=== PATIENT | male | born 1965 | race Two or more races ===

== ENCOUNTER 2018-06-19 16:15 | Emergency (ER) | payer OTHER ==
[~2018-06-19] VITALS: Ht 162.6 cm; Wt 72.0 kg
[2018-06-19] MEDS ORDERED: SODIUM CHLORIDE 0.9% 1,000 ML IV ONE (18:56)
[2018-06-19] MEDS ORDERED: ONDANSETRON HCL 4MG/2ML VIAL IV STA (18:56)
[2018-06-19 21:20] LABS: BASOPHILS % 0.7 % (0.0-2.0); EOSINOPHILS % 1.6 % (0.0-5.0); HEMOGLOBIN. 14.6 g/dL (14.0-18.0); LYMPHOCYTES % 34.6 % (20.0-50.0); MEAN CORPUSCULAR HEMOGLOBIN 33.8 pg (28.0-32.0); MEAN PLATELET VOLUME 10.5 fl (7.4-10.4); MONOCYTES % 10.5 % (2.0-8.0); NEUTROPHILS % 52.6 % (40.0-76.0); PLATELET 86 x1000/uL (130-400); RED BLOOD CELL COUNT 4.33 mill/uL (4.7-6.1); RED CELL DISTRIBUTION WIDTH 12.8 % (11.6-14.6)
[2018-06-19 21:25] LABS: CHLORIDE 104 mEq/L (98-107)
[2018-06-19] MEDS ORDERED: CLONIDINE 0.1MG TABLET PO ONE (22:15)
[2018-06-20 00:04] LABS: CLARITY URINE CLEAR (CLEAR); COLOR URINE YELLOW (YELLOW); KETONES URINE NEGATIVE (NEGATIVE); LEUKOCYTE ESTERASE URINE NEGATIVE (NEGATIVE); NITRITE URINE NEGATIVE (NEGATIVE); OCCULT BLOOD URINE 1+ (NEGATIVE); PH URINE 7.5 (4.5-8.0); PROTEIN URINE TRACE (NEGATIVE); UROBILINOGEN URINE 0.2 E.U./dL (0.2-1.0)
[2018-06-20 01:45] VITALS: BP 163/95
== END 2018-06-20 01:46 | disposition home or self-care (01) ==
LOC: ER 16:15
DX: I10 Essential (primary) hypertension (principal); I85.00 Esophageal varices without bleeding; K74.69 Other cirrhosis of liver; R94.31 Abnormal electrocardiogram [ECG] [EKG]; K57.30 Diverticulosis of large intestine without perforation or abscess without bleeding
CPT/HCPCS: 36415; 71045; 74176; 80053; 81003; 83690; 84484; 85025; 93005; 96361; 96374; 99285; J2405; J7030; Z7610

== ENCOUNTER → 2020-05-03 | Outpatient (CLI) | payer MEDICAID ==
[~2020-05-03] MED LIST: DOXA4TAB3 PO; FURO40TA5 MT; LISI-648 PO; MIDAZOLAM HCL 5 MG/5 ML VIAL ONE; PROP20TA7 MT; PROPOFOL 200MG/20ML VIAL IV ONE; SPIR25TA6 PO; SUCCINYLCHOLINE CHLORIDE 200MG/10ML IV ONE
== END | disposition home or self-care (01) ==
LOC: LAB 08:54
PROVIDERS: ATTEND Internal Medicine Gastroenterology
DX: Z01.818 Encounter for other preprocedural examination (principal); Z11.59 Encounter for screening for other viral diseases
CPT/HCPCS: J0330; U0003-CS

== ENCOUNTER → 2020-05-05 | Day surgery (SDC) | payer MEDICAID ==
[~2020-05-05] VITALS: Ht 168.9 cm; Wt 76.2 kg
[~2020-05-05] MED LIST changes: -MIDAZOLAM HCL 5 MG/5 ML VIAL ONE; -PROPOFOL 200MG/20ML VIAL IV ONE; +SODIUM CHLORIDE 0.9% 1,000 ML IV SCH; -SUCCINYLCHOLINE CHLORIDE 200MG/10ML IV ONE
== END | disposition home or self-care (01) ==
LOC: OR 08:09
PROVIDERS: ATTEND Internal Medicine Gastroenterology
DX: I85.00 Esophageal varices without bleeding (principal); K70.31 Alcoholic cirrhosis of liver with ascites; B96.81 Helicobacter pylori [H. pylori] as the cause of diseases classified elsewhere; K29.50 Unspecified chronic gastritis without bleeding; K31.89 Other diseases of stomach and duodenum; E11.9 Type 2 diabetes mellitus without complications; I10 Essential (primary) hypertension; F10.11 Alcohol abuse, in remission; Z79.899 Other long term (current) drug therapy; Z98.890 Other specified postprocedural states
CPT/HCPCS: 43239; 43244; 82962; 88305; 88312; 88313; 93005; J2250; J2704

== ENCOUNTER 2020-12-01 10:49 | Inpatient (IN) | payer MEDICAID ==
[~2020-12-01] VITALS: Ht 175.3 cm; Wt 88.5 kg
[~2020-12-01 10:49] MED LIST changes: -SODIUM CHLORIDE 0.9% 1,000 ML IV SCH
[2020-12-01 11:31] LABS: BASOPHILS % 0.1 % (0.0-2.0); HEMATOCRIT. 32.6 % (42.0-52.0); HEMOGLOBIN. 10.8 g/dL (14.0-18.0); LYMPHOCYTES % 7.2 % (20.0-50.0); MEAN CORPUSCULAR HEMOGLOBIN 30.4 pg (28.0-32.0); MEAN PLATELET VOLUME 9.2 fl (7.4-10.4); MONOCYTES % 9.2 % (2.0-8.0); NEUTROPHILS % 83.5 % (40.0-76.0); PLATELET 146 x1000/uL (130-400); RED BLOOD CELL COUNT 3.55 mill/uL (4.7-6.1); RED CELL DISTRIBUTION WIDTH 14.2 % (11.6-14.6)
[2020-12-01 11:39] LABS: CHLORIDE 113 mEq/L (98-107)
[2020-12-01 11:41] LABS: INR 1.2; PROTHROMBIN TIME 12.2 sec (9.6-11.0)
[2020-12-01 12:57] LABS: BG BASE EXCESS -5.3 mmol/L (-2.0-2.0); BG DEOXYHEMOGLOBIN 17.6 % (0.0-5.0); BG FRACTION INSPIRED OXYGEN 99.9; BG HCO3 ACT 16.9 mmol/L (22.0-26.0); BG METHEMOGLOBIN 0.1 % (0.0-1.5); BG OXYGEN SATURATION 82.4 % (92.0-98.5); BG OXYHEMOGLOBIN 82.3 % (94.0-97.0); BG PCO2 24.2 mmHg (35.0-45.0); BG PH 7.462 (7.350-7.450); BG PO2 48.5 mmHg (75.0-100.0); BG SAMPLE SITE RIGHT BRACHIAL; BG TOTAL HEMOGLOBIN 11.7 g/dL (12.0-18.0); BG VENT MODE MASK - NRB
[2020-12-01] MEDS ORDERED: NOREPINEPHRINE 8 MG in DEXT 5% WATER 242 ML IV PRN ×2 (14:15→16:30)
[2020-12-01] MEDS ORDERED: MIDAZOLAM HCL 100 MG in DEXT 5% WATER 80 ML IV ONE ×4 (14:15)
[2020-12-01] MEDS ORDERED: FENTANYL CITRATE/PF 2,500 MCG in SODIUM CHLORIDE 0.9% 200 ML IV PRN (14:15)
[2020-12-01] MEDS ORDERED: ETOMIDATE 2MG/ML 10ML VIAL IV ONE (14:15)
[2020-12-01] MEDS ORDERED: FENTANYL CITRATE/PF 500 MCG in SODIUM CHLORIDE 0.9% 40 ML IV PRN (14:15)
[2020-12-01] MEDS ORDERED: SODIUM CHLORIDE 0.9% 1,000 ML IV ONE (14:15)
[2020-12-01] MEDS ORDERED: SUCCINYLCHOLINE CHLORIDE 200MG/10ML IV ONE (14:15)
[2020-12-01] MEDS ORDERED: DEXAMETHASONE 4MG/ML 1ML VIAL IV ONE (15:30)
[2020-12-01] MEDS ORDERED: PIPERACILLIN/TAZ 3.375G PREMIX 50 ML IV ONE (15:30)
[2020-12-01] MEDS ORDERED: VANCOMYCIN 1 G PREMIX 200 ML IV ONE (15:30)
[2020-12-01] MEDS ORDERED: ONDANSETRON HCL 4MG/2ML INJ IV PRN (17:30)
[2020-12-01] MEDS ORDERED: PIPERACILLIN/TAZOBACTAM 3.375 G in DEXT 5% WATER 100 ML IV SCH (17:30)
[2020-12-01] MEDS: SODIUM CHLORIDE 0.45% 1,000 ML IV SCH (17:45)
[2020-12-01 19:00] LABS: HEPATITIS B SURFACE ANTIGEN NEGATIVE
[2020-12-01 19:30] LABS: HEPATITIS A AB IGM NEGATIVE (NEGATIVE)
[2020-12-01 21:22] LABS: BG BASE EXCESS -7.8 mmol/L (-2.0-2.0); BG CARBOXYHEMOGLOBIN 0.3 % (0.5-1.5); BG DEOXYHEMOGLOBIN 7.1 % (0.0-5.0); BG FRACTION INSPIRED OXYGEN 100; BG HCO3 ACT 16.4 mmol/L (22.0-26.0); BG METHEMOGLOBIN 0.2 % (0.0-1.5); BG OXYGEN SATURATION 92.9 % (92.0-98.5); BG OXYHEMOGLOBIN 92.4 % (94.0-97.0); BG PCO2 29.4 mmHg (35.0-45.0); BG PH 7.364 (7.350-7.450); BG PO2 73.7 mmHg (75.0-100.0); BG SAMPLE SITE RIGHT RADIAL; BG TOTAL HEMOGLOBIN 11.1 g/dL (12.0-18.0); BG VENT MODE VENT - AC
[2020-12-01] MEDS: PIPERACILLIN/TAZOBACTAM 2.25 G in DEXTROSE 5% WATER 50 ML IV SCH (22:00)
[2020-12-01] MEDS: ENOXAPARIN 30MG/0.3ML SYR SUBCUT SCH (22:33)
[2020-12-02 04:31] LABS: HEMOGLOBIN. 10.3 g/dL (14.0-18.0); MEAN CORPUSCULAR VOLUME 93.4 fL (80.0-94.0); MEAN PLATELET VOLUME 8.9 fl (7.4-10.4); PLATELET 139 x1000/uL (130-400); RED BLOOD CELL COUNT 3.32 mill/uL (4.7-6.1); RED CELL DISTRIBUTION WIDTH 14.7 % (11.6-14.6)
[2020-12-02] MEDS: PIPERACILLIN/TAZOBACTAM 2.25 G in DEXTROSE 5% WATER 50 ML IV SCH ×4 (05:00→22:00)
[2020-12-02] MEDS ORDERED: MIDAZOLAM HCL 100 MG in DEXT 5% WATER 80 ML IV ONE (07:45)
[2020-12-02] MEDS ORDERED: DEXAMETHASONE 6MG TABLET PO SCH (09:00)
[2020-12-02] MEDS: DEXAMETHASONE 10 MG/ML VIAL IV SCH (09:45)
[2020-12-02] MEDS: PANTOPRAZOLE SODIUM 40 MG/VIAL IV SCH (09:45)
[2020-12-02 10:11] LABS: BG BASE EXCESS 1.7 mmol/L (-2.0-2.0); BG CARBOXYHEMOGLOBIN 0.6 % (0.5-1.5); BG DEOXYHEMOGLOBIN 8.9 % (0.0-5.0); BG FRACTION INSPIRED OXYGEN 100; BG HCO3 ACT 27.2 mmol/L (22.0-26.0); BG METHEMOGLOBIN 0.2 % (0.0-1.5); BG OXYHEMOGLOBIN 90.3 % (94.0-97.0); BG PH 7.389 (7.350-7.450); BG PO2 61.6 mmHg (75.0-100.0); BG SAMPLE SITE LEFT RADIAL; BG TOTAL HEMOGLOBIN 11.8 g/dL (12.0-18.0); BG VENT MODE VENT - AC
[2020-12-02] MEDS: SODIUM CHLORIDE 0.45% 1,000 ML IV SCH (13:48)
[2020-12-02 14:33] LABS: PLATELET ESTIMATE NORMAL
[2020-12-02] MEDS: ENOXAPARIN 30MG/0.3ML SYR SUBCUT SCH (17:24)
[2020-12-02] MEDS ORDERED: DEXTROSE 50% WATER 50ML SYRINGE IV PRN (22:30)
[2020-12-02] MEDS ORDERED: INSULIN GLARGINE UD 100 UNITS/ML SYR SUBCUT SCH (23:30)
[2020-12-03] MEDS: PIPERACILLIN/TAZOBACTAM 2.25 G in DEXTROSE 5% WATER 50 ML IV SCH ×4 (03:30→21:32)
[2020-12-03 05:25] LABS: HEMATOCRIT. 32.3 % (42.0-52.0); HEMOGLOBIN. 10.7 g/dL (14.0-18.0); MEAN CORPUSCULAR HEMOGLOBIN 30.4 pg (28.0-32.0); MEAN CORPUSCULAR VOLUME 92.1 fL (80.0-94.0); MEAN PLATELET VOLUME 8.4 fl (7.4-10.4); PLATELET 172 x1000/uL (130-400); RED BLOOD CELL COUNT 3.51 mill/uL (4.7-6.1); RED CELL DISTRIBUTION WIDTH 14.3 % (11.6-14.6)
[2020-12-03] MEDS: BLOOD SUGAR DIAGNOSTIC STRIP TEST SCH ×4 (05:49→21:31)
[2020-12-03] MEDS: INSULIN LISPRO 100 UNITS/ML SUBCUT SCH ×4 (07:33→21:00)
[2020-12-03] MEDS: SODIUM CHLORIDE 0.45% 1,000 ML IV SCH (09:31)
[2020-12-03] MEDS: DEXAMETHASONE 10 MG/ML VIAL IV SCH (09:45)
[2020-12-03] MEDS: PANTOPRAZOLE SODIUM 40 MG/VIAL IV SCH (09:45)
[2020-12-03] MEDS ORDERED: MIDAZOLAM HCL 100 MG in DEXT 5% WATER 100 ML IV PRN (13:45)
[2020-12-03] MEDS ORDERED: FENTANYL CITRATE 2,500 MCG in SODIUM CHLORIDE 0.9% 200 ML IV PRN (13:45)
[2020-12-03 13:52] LABS: PHOSPHORUS 5.6 mg/dL (2.5-4.9)
[2020-12-03 16:59] LABS: PLATELET ESTIMATE NORMAL
[2020-12-03] MEDS: ENOXAPARIN 30MG/0.3ML SYR SUBCUT SCH (17:44)
[2020-12-03 19:33] LABS: BG BASE EXCESS -8.5 mmol/L (-2.0-2.0); BG CARBOXYHEMOGLOBIN 0.3 % (0.5-1.5); BG DEOXYHEMOGLOBIN 8.4 % (0.0-5.0); BG FRACTION INSPIRED OXYGEN 100; BG HCO3 ACT 16.4 mmol/L (22.0-26.0); BG METHEMOGLOBIN 0.2 % (0.0-1.5); BG OXYGEN SATURATION 91.6 % (92.0-98.5); BG OXYHEMOGLOBIN 91.1 % (94.0-97.0); BG PH 7.327 (7.350-7.450); BG PO2 67.8 mmHg (75.0-100.0); BG SAMPLE SITE RIGHT RADIAL; BG TOTAL HEMOGLOBIN 11.5 g/dL (12.0-18.0); BG TOTAL RESPIRATORY RATE 25 b/min; BG VENT MODE VENT - AC
[2020-12-03] MEDS: INSULIN GLARGINE UD 100 UNITS/ML SYR SUBCUT SCH (22:00)
[2020-12-04] MEDS: PIPERACILLIN/TAZOBACTAM 2.25 G in DEXTROSE 5% WATER 50 ML IV SCH ×4 (03:30→21:30)
[2020-12-04 04:31] LABS: HEMATOCRIT. 29.3 % (42.0-52.0); HEMOGLOBIN. 9.7 g/dL (14.0-18.0); MEAN CORPUSCULAR HEMOGLOBIN 30.9 pg (28.0-32.0); MEAN CORPUSCULAR VOLUME 93.1 fL (80.0-94.0); MEAN PLATELET VOLUME 8.5 fl (7.4-10.4); PLATELET 176 x1000/uL (130-400); RED BLOOD CELL COUNT 3.15 mill/uL (4.7-6.1); RED CELL DISTRIBUTION WIDTH 14.3 % (11.6-14.6)
[2020-12-04] MEDS: SODIUM CHLORIDE 0.45% 1,000 ML IV SCH (05:13)
[2020-12-04] MEDS: INSULIN LISPRO 100 UNITS/ML SUBCUT SCH ×4 (06:31→21:56)
[2020-12-04] MEDS: BLOOD SUGAR DIAGNOSTIC STRIP TEST SCH ×4 (06:31→21:00)
[2020-12-04 09:28] LABS: PLATELET ESTIMATE NORMAL
[2020-12-04] MEDS: PANTOPRAZOLE SODIUM 40 MG/VIAL IV SCH (09:45)
[2020-12-04] MEDS: DEXAMETHASONE 10 MG/ML VIAL IV SCH (09:45)
[2020-12-04 10:18] LABS: BG BASE EXCESS -10.6 mmol/L (-2.0-2.0); BG CARBOXYHEMOGLOBIN 0.3 % (0.5-1.5); BG DEOXYHEMOGLOBIN 10.5 % (0.0-5.0); BG FRACTION INSPIRED OXYGEN 100; BG HCO3 ACT 14.4 mmol/L (22.0-26.0); BG METHEMOGLOBIN 0.1 % (0.0-1.5); BG OXYGEN SATURATION 89.5 % (92.0-98.5); BG OXYHEMOGLOBIN 89.1 % (94.0-97.0); BG PCO2 29.2 mmHg (35.0-45.0); BG PH 7.311 (7.350-7.450); BG PO2 61.2 mmHg (75.0-100.0); BG SAMPLE SITE RIGHT RADIAL; BG TOTAL HEMOGLOBIN 10.9 g/dL (12.0-18.0); BG TOTAL RESPIRATORY RATE 22 b/min; BG VENT MODE VENT - AC
[2020-12-04] MEDS: ENOXAPARIN 30MG/0.3ML SYR SUBCUT SCH (17:36)
[2020-12-04] MEDS: INSULIN GLARGINE UD 100 UNITS/ML SYR SUBCUT SCH (22:00)
[2020-12-05] MEDS: SODIUM CHLORIDE 0.45% 1,000 ML IV SCH ×2 (01:30→21:39)
[2020-12-05] MEDS: PIPERACILLIN/TAZOBACTAM 2.25 G in DEXTROSE 5% WATER 50 ML IV SCH ×4 (03:30→21:39)
[2020-12-05 04:30] LABS: HEMATOCRIT. 30.5 % (42.0-52.0); MEAN CORPUSCULAR HEMOGLOBIN 30.7 pg (28.0-32.0); MEAN PLATELET VOLUME 8.5 fl (7.4-10.4); PLATELET 116 x1000/uL (130-400); RED BLOOD CELL COUNT 3.28 mill/uL (4.7-6.1); RED CELL DISTRIBUTION WIDTH 14.5 % (11.6-14.6)
[2020-12-05] MEDS: BLOOD SUGAR DIAGNOSTIC STRIP TEST SCH (06:31)
[2020-12-05] MEDS: INSULIN LISPRO 100 UNITS/ML SUBCUT SCH ×2 (07:00→14:06)
[2020-12-05 08:09] LABS: BG BASE EXCESS -9.2 mmol/L (-2.0-2.0); BG CARBOXYHEMOGLOBIN 0.2 % (0.5-1.5); BG HCO3 ACT 15.3 mmol/L (22.0-26.0); BG METHEMOGLOBIN 0.2 % (0.0-1.5); BG OXYHEMOGLOBIN 98.6 % (94.0-97.0); BG PH 7.341 (7.350-7.450); BG PO2 185.3 mmHg (75.0-100.0); BG SAMPLE SITE RIGHT RADIAL; BG TOTAL HEMOGLOBIN 10.5 g/dL (12.0-18.0); BG VENT MODE VENT - AC
[2020-12-05] MEDS ORDERED: LIDOCAINE HCL/PF 1% 2ML VIAL ONE (09:00)
[2020-12-05] MEDS: PANTOPRAZOLE SODIUM 40 MG/VIAL IV SCH (10:12)
[2020-12-05] MEDS: DEXAMETHASONE 10 MG/ML VIAL IV SCH (10:12)
[2020-12-05] MEDS ORDERED: LIDOCAINE HCL 1% 20ML VIAL (Pyxis) INJ ONE (10:44)
[2020-12-05] MEDS ORDERED: SODIUM BICARBONATE 4% (2.4MEQ) 5ML VIAL IV ONE (10:45)
[2020-12-05] MEDS ORDERED: IPRATROPIUM/ALBUTEROL 0.5-3(2.5)MG/3ML NEB HHN PRN (13:30)
[2020-12-05 14:28] LABS: PLATELET ESTIMATE SLIGHTLY DECREASED
[2020-12-05] MEDS: IPRATROPIUM/ALBUTEROL 0.5-3(2.5)MG/3ML NEB HHN SCH (20:34)
[2020-12-05] MEDS: ENOXAPARIN 30MG/0.3ML SYR SUBCUT SCH (21:40)
[2020-12-05] MEDS: INSULIN GLARGINE UD 100 UNITS/ML SYR SUBCUT SCH (22:00)
[2020-12-06] MEDS: IPRATROPIUM/ALBUTEROL 0.5-3(2.5)MG/3ML NEB HHN SCH ×4 (02:15→15:34)
[2020-12-06] MEDS: PIPERACILLIN/TAZOBACTAM 2.25 G in DEXTROSE 5% WATER 50 ML IV SCH (03:30)
[2020-12-06 04:40] LABS: HEMATOCRIT. 31.4 % (42.0-52.0); HEMOGLOBIN. 10.6 g/dL (14.0-18.0); MEAN CORPUSCULAR HEMOGLOBIN 30.8 pg (28.0-32.0); MEAN CORPUSCULAR VOLUME 91.4 fL (80.0-94.0); MEAN PLATELET VOLUME 8.3 fl (7.4-10.4); PLATELET 100 x1000/uL (130-400); RED BLOOD CELL COUNT 3.44 mill/uL (4.7-6.1); RED CELL DISTRIBUTION WIDTH 14.4 % (11.6-14.6)
[2020-12-06] MEDS ORDERED: CEFEPIME 1,000 MG in DEXTROSE 5% WATER 50 ML IV SCH (08:30)
[2020-12-06] MEDS: FAMOTIDINE 20MG/2ML VIAL IV SCH (09:15)
[2020-12-06] MEDS: DEXAMETHASONE 10 MG/ML VIAL IV SCH (09:15)
[2020-12-06 09:50] LABS: PLATELET ESTIMATE SLIGHTLY DECREASED
[2020-12-06] MEDS ORDERED: INSULIN GLARGINE UD 100 UNITS/ML SYR SUBCUT SCH ×2 (10:00→22:00)
[2020-12-06] MEDS ORDERED: SODIUM POLYSTYRENE SULFONATE 15 G/60 ML BOT PO NR (11:00)
[2020-12-06] MEDS: SODIUM CHLORIDE 0.45% 1,000 ML IV SCH (18:07)
[2020-12-06] MEDS: ENOXAPARIN 30MG/0.3ML SYR SUBCUT SCH (18:07)
[2020-12-06] MEDS: BLOOD SUGAR DIAGNOSTIC STRIP TEST SCH (21:00)
[2020-12-07] MEDS: INSULIN GLARGINE UD 100 UNITS/ML SYR SUBCUT SCH (01:22)
[2020-12-07] MEDS: IPRATROPIUM/ALBUTEROL 0.5-3(2.5)MG/3ML NEB HHN SCH ×2 (02:04→21:17)
[2020-12-07 03:45] LABS: HEMATOCRIT. 30.7 % (42.0-52.0); HEMOGLOBIN. 10.2 g/dL (14.0-18.0); MEAN CORPUSCULAR HEMOGLOBIN 30.8 pg (28.0-32.0); MEAN CORPUSCULAR VOLUME 93.1 fL (80.0-94.0); MEAN PLATELET VOLUME 8.5 fl (7.4-10.4); PLATELET 114 x1000/uL (130-400); RED CELL DISTRIBUTION WIDTH 14.6 % (11.6-14.6)
[2020-12-07] MEDS ORDERED: INSULIN LISPRO 100 UNITS/ML SUBCUT NR (04:45)
[2020-12-07] MEDS ORDERED: SODIUM POLYSTYRENE SULFONATE 15 G/60 ML BOT PO NR (06:00)
[2020-12-07 07:21] LABS: PLATELET ESTIMATE SLIGHTLY DECREASED
[2020-12-07 07:55] LABS: BG BASE EXCESS -10.8 mmol/L (-2.0-2.0); BG CARBOXYHEMOGLOBIN 0.1 % (0.5-1.5); BG DEOXYHEMOGLOBIN 7.2 % (0.0-5.0); BG HCO3 ACT 14.9 mmol/L (22.0-26.0); BG METHEMOGLOBIN 0.3 % (0.0-1.5); BG OXYGEN SATURATION 92.8 % (92.0-98.5); BG OXYHEMOGLOBIN 92.4 % (94.0-97.0); BG PCO2 32.7 mmHg (35.0-45.0); BG PH 7.277 (7.350-7.450); BG PO2 73.9 mmHg (75.0-100.0); BG SAMPLE SITE RIGHT RADIAL; BG TOTAL HEMOGLOBIN 11.3 g/dL (12.0-18.0); BG VENT MODE VENT - AC
[2020-12-07] MEDS: FAMOTIDINE 20MG/2ML VIAL IV SCH (09:00)
[2020-12-07] MEDS: DEXAMETHASONE 10 MG/ML VIAL IV SCH (09:00)
[2020-12-07] MEDS: SODIUM CHLORIDE 0.9% 1,000 ML IV SCH ×2 (09:00→23:25)
[2020-12-07] MEDS: BLOOD SUGAR DIAGNOSTIC STRIP TEST SCH ×4 (10:00→23:20)
[2020-12-07] MEDS: INSULIN LISPRO 100 UNITS/ML SUBCUT SCH ×5 (11:30→23:45)
[2020-12-07] MEDS: ENOXAPARIN 30MG/0.3ML SYR SUBCUT SCH (17:12)
[2020-12-08] MEDS: IPRATROPIUM/ALBUTEROL 0.5-3(2.5)MG/3ML NEB HHN SCH ×7 (00:22→22:10)
[2020-12-08] MEDS: MEROPENEM 1,000 MG in SODIUM CHLORIDE 0.9% 100 ML IV SCH ×2 (01:25→12:00)
[2020-12-08 05:31] LABS: HEMATOCRIT. 33.5 % (42.0-52.0); HEMOGLOBIN. 11.2 g/dL (14.0-18.0); MEAN CORPUSCULAR HEMOGLOBIN 30.4 pg (28.0-32.0); MEAN CORPUSCULAR VOLUME 90.6 fL (80.0-94.0); PLATELET 118 x1000/uL (130-400); RED CELL DISTRIBUTION WIDTH 14.5 % (11.6-14.6)
[2020-12-08] MEDS: BLOOD SUGAR DIAGNOSTIC STRIP TEST SCH ×4 (06:42→21:23)
[2020-12-08] MEDS: INSULIN LISPRO 100 UNITS/ML SUBCUT SCH ×5 (06:45→21:00)
[2020-12-08 07:01] LABS: PLATELET ESTIMATE DECREASED
[2020-12-08 08:09] LABS: BG CARBOXYHEMOGLOBIN 0.3 % (0.5-1.5); BG DEOXYHEMOGLOBIN 10.9 % (0.0-5.0); BG FRACTION INSPIRED OXYGEN 30; BG HCO3 ACT 16.9 mmol/L (22.0-26.0); BG METHEMOGLOBIN 0.2 % (0.0-1.5); BG OXYHEMOGLOBIN 88.6 % (94.0-97.0); BG PCO2 36.2 mmHg (35.0-45.0); BG PH 7.286 (7.350-7.450); BG PO2 59.9 mmHg (75.0-100.0); BG SAMPLE SITE RIGHT RADIAL; BG TOTAL HEMOGLOBIN 12.4 g/dL (12.0-18.0); BG VENT MODE VENT - AC
[2020-12-08] MEDS: INSULIN GLARGINE UD 100 UNITS/ML SYR SUBCUT SCH ×2 (10:30→21:25)
[2020-12-08] MEDS: DEXAMETHASONE 10 MG/ML VIAL IV SCH (11:18)
[2020-12-08] MEDS: FAMOTIDINE 20MG/2ML VIAL IV SCH (11:20)
[2020-12-08] MEDS: CITRIC ACID/SODIUM CITRATE SOLN 30ML UDC PO SCH ×3 (11:47→18:52)
[2020-12-08] MEDS: SODIUM CHLORIDE 0.9% 1,000 ML IV SCH (11:53)
[2020-12-08] MEDS ORDERED: FENTANYL CITRATE/PF 2,500 MCG in SODIUM CHLORIDE 0.9% 200 ML IV PRN (20:30)
[2020-12-08] MEDS ORDERED: FENTANYL CITRATE/PF 1,000 MCG in SODIUM CHLORIDE 0.9% 80 ML IV PRN (20:30)
[2020-12-08] MEDS: ENOXAPARIN 30MG/0.3ML SYR SUBCUT SCH (21:31)
[2020-12-09] MEDS: IPRATROPIUM/ALBUTEROL 0.5-3(2.5)MG/3ML NEB HHN SCH ×5 (02:00→20:24)
[2020-12-09] MEDS: MEROPENEM 1,000 MG in SODIUM CHLORIDE 0.9% 100 ML IV SCH ×2 (02:26→15:05)
[2020-12-09] MEDS: SODIUM CHLORIDE 0.9% 1,000 ML IV SCH ×2 (02:26→14:49)
[2020-12-09 03:33] LABS: HEMOGLOBIN. 10.7 g/dL (14.0-18.0); MEAN CORPUSCULAR HEMOGLOBIN 30.5 pg (28.0-32.0); MEAN CORPUSCULAR VOLUME 91.1 fL (80.0-94.0); MEAN PLATELET VOLUME 8.1 fl (7.4-10.4); PLATELET 102 x1000/uL (130-400); RED BLOOD CELL COUNT 3.52 mill/uL (4.7-6.1); RED CELL DISTRIBUTION WIDTH 14.6 % (11.6-14.6)
[2020-12-09 04:34] LABS: PLATELET ESTIMATE DECREASED
[2020-12-09] MEDS: DEXTROSE 50% WATER 50ML SYRINGE IV PRN ×2 (06:43→12:22)
[2020-12-09] MEDS: BLOOD SUGAR DIAGNOSTIC STRIP TEST SCH ×4 (06:50→21:00)
[2020-12-09] MEDS: INSULIN LISPRO 100 UNITS/ML SUBCUT SCH ×6 (06:50→22:36)
[2020-12-09 08:39] LABS: BG BASE EXCESS -6.2 mmol/L (-2.0-2.0); BG CARBOXYHEMOGLOBIN 0.3 % (0.5-1.5); BG DEOXYHEMOGLOBIN 6.6 % (0.0-5.0); BG HCO3 ACT 18.5 mmol/L (22.0-26.0); BG METHEMOGLOBIN 0.3 % (0.0-1.5); BG OXYGEN SATURATION 93.4 % (92.0-98.5); BG OXYHEMOGLOBIN 92.8 % (94.0-97.0); BG PCO2 33.6 mmHg (35.0-45.0); BG PH 7.358 (7.350-7.450); BG PO2 71.4 mmHg (75.0-100.0); BG SAMPLE SITE RIGHT RADIAL; BG TOTAL HEMOGLOBIN 10.6 g/dL (12.0-18.0); BG VENT MODE VENT - AC
[2020-12-09] MEDS ORDERED: SODIUM POLYSTYRENE SULFONATE 15 G/60 ML BOT PO SCH (09:00)
[2020-12-09] MEDS: FAMOTIDINE 20MG/2ML VIAL IV SCH (09:03)
[2020-12-09] MEDS: DEXAMETHASONE 10 MG/ML VIAL IV SCH (09:03)
[2020-12-09] MEDS: INSULIN GLARGINE UD 100 UNITS/ML SYR SUBCUT SCH (10:00)
[2020-12-09] MEDS: CITRIC ACID/SODIUM CITRATE SOLN 30ML UDC PO SCH ×3 (12:12→17:34)
[2020-12-09] MEDS ORDERED: MIDAZOLAM HCL 100 MG in DEXT 5% WATER 80 ML IV PRN (19:00)
[2020-12-09] MEDS: ENOXAPARIN 30MG/0.3ML SYR SUBCUT SCH (19:03)
[2020-12-09] MEDS ORDERED: INSULIN GLARGINE UD 100 UNITS/ML SYR SUBCUT SCH (22:00)
[2020-12-10] MEDS: MEROPENEM 1,000 MG in SODIUM CHLORIDE 0.9% 100 ML IV SCH ×2 (00:58→10:55)
[2020-12-10] MEDS: SODIUM CHLORIDE 0.9% 1,000 ML IV SCH ×2 (03:50→17:00)
[2020-12-10] MEDS: IPRATROPIUM/ALBUTEROL 0.5-3(2.5)MG/3ML NEB HHN SCH ×4 (03:57→20:26)
[2020-12-10 04:20] LABS: HEMATOCRIT. 32.5 % (42.0-52.0); MEAN CORPUSCULAR HEMOGLOBIN 30.6 pg (28.0-32.0); MEAN CORPUSCULAR VOLUME 90.9 fL (80.0-94.0); MEAN PLATELET VOLUME 8.7 fl (7.4-10.4); PLATELET 68 x1000/uL (130-400); RED BLOOD CELL COUNT 3.58 mill/uL (4.7-6.1); RED CELL DISTRIBUTION WIDTH 14.8 % (11.6-14.6)
[2020-12-10] MEDS: INSULIN LISPRO 100 UNITS/ML SUBCUT SCH ×2 (07:00→21:00)
[2020-12-10] MEDS: BLOOD SUGAR DIAGNOSTIC STRIP TEST SCH ×2 (07:28→21:00)
[2020-12-10] MEDS: DEXTROSE 50% WATER 50ML SYRINGE IV PRN (07:44)
[2020-12-10] MEDS: FAMOTIDINE 20MG/2ML VIAL IV SCH (10:03)
[2020-12-10] MEDS: DEXAMETHASONE 10 MG/ML VIAL IV SCH (10:03)
[2020-12-10] MEDS: CITRIC ACID/SODIUM CITRATE SOLN 30ML UDC PO SCH ×2 (10:03→17:00)
[2020-12-10] MEDS: INSULIN GLARGINE UD 100 UNITS/ML SYR SUBCUT SCH ×2 (10:55→21:29)
[2020-12-10 14:18] LABS: PLATELET ESTIMATE DECREASED
[2020-12-10 15:38] LABS: BG BASE EXCESS -1.3 mmol/L (-2.0-2.0); BG CARBOXYHEMOGLOBIN 0.3 % (0.5-1.5); BG CPAP (cmH2O) 0 cm(H2O); BG DEOXYHEMOGLOBIN 9.5 % (0.0-5.0); BG HCO3 ACT 21.2 mmol/L (22.0-26.0); BG OXYGEN SATURATION 90.5 % (92.0-98.5); BG OXYHEMOGLOBIN 90.2 % (94.0-97.0); BG PH 7.481 (7.350-7.450); BG PO2 58.2 mmHg (75.0-100.0); BG SAMPLE SITE RIGHT RADIAL; BG TOTAL HEMOGLOBIN 12.1 g/dL (12.0-18.0); BG VENT MODE VENT - CPAP
[2020-12-10] MEDS: MORPHINE SULFATE 2 MG/ML CPJ (NOT FOR IM USE) IV PRN ×2 (16:43→21:00)
[2020-12-10] MEDS: LORAZEPAM 2MG/ML CPJ IV PRN ×2 (16:43→21:00)
[2020-12-11] MEDS: MEROPENEM 1,000 MG in SODIUM CHLORIDE 0.9% 100 ML IV SCH ×2 (01:00→13:46)
[2020-12-11] MEDS: MORPHINE SULFATE 2 MG/ML CPJ (NOT FOR IM USE) IV PRN (01:00)
[2020-12-11] MEDS: IPRATROPIUM/ALBUTEROL 0.5-3(2.5)MG/3ML NEB HHN SCH ×3 (02:21→20:30)
[2020-12-11] MEDS: LORAZEPAM 2MG/ML CPJ IV PRN (03:00)
[2020-12-11 05:09] LABS: HEMATOCRIT. 32.7 % (42.0-52.0); HEMOGLOBIN. 10.9 g/dL (14.0-18.0); MEAN CORPUSCULAR HEMOGLOBIN 30.4 pg (28.0-32.0); MEAN CORPUSCULAR VOLUME 91.4 fL (80.0-94.0); MEAN PLATELET VOLUME 8.7 fl (7.4-10.4); PLATELET 57 x1000/uL (130-400); RED BLOOD CELL COUNT 3.57 mill/uL (4.7-6.1); RED CELL DISTRIBUTION WIDTH 14.9 % (11.6-14.6)
[2020-12-11 05:10] LABS: CHLORIDE 118 mEq/L (98-107)
[2020-12-11] MEDS: SODIUM CHLORIDE 0.9% 1,000 ML IV SCH (06:20)
[2020-12-11] MEDS: BLOOD SUGAR DIAGNOSTIC STRIP TEST SCH ×4 (06:30→21:29)
[2020-12-11] MEDS: INSULIN LISPRO 100 UNITS/ML SUBCUT SCH ×4 (06:35→21:00)
[2020-12-11] MEDS: FAMOTIDINE 20MG/2ML VIAL IV SCH (09:24)
[2020-12-11] MEDS: DEXAMETHASONE 10 MG/ML VIAL IV SCH (09:24)
[2020-12-11] MEDS: INSULIN GLARGINE UD 100 UNITS/ML SYR SUBCUT SCH (10:00)
[2020-12-11] MEDS: DEXT 5%/0.45% NACL 1000ML 1,000 ML IV SCH (10:00)
[2020-12-11 10:35] LABS: PLATELET ESTIMATE MARKEDLY DECREASED
[2020-12-11] MEDS ORDERED: MEROPENEM 1000MG in NORMAL SALINE 100ML IV SCH (21:00)
[2020-12-11] MEDS ORDERED: INSULIN GLARGINE UD 100 UNITS/ML SYR SUBCUT SCH (22:00)
[2020-12-12] VITALS (49 sets, daily range): BP systolic 55–159; BP diastolic 20–102
[2020-12-12] MEDS: IPRATROPIUM/ALBUTEROL 0.5-3(2.5)MG/3ML NEB HHN SCH ×4 (04:50→20:35)
[2020-12-12] MEDS: BLOOD SUGAR DIAGNOSTIC STRIP TEST SCH ×4 (06:17→21:00)
[2020-12-12] MEDS: INSULIN LISPRO 100 UNITS/ML SUBCUT SCH ×4 (06:17→21:00)
[2020-12-12] MEDS: MEROPENEM 1000MG in NORMAL SALINE 100ML IV SCH ×3 (06:19→22:11)
[2020-12-12 06:23] LABS: HEMOGLOBIN. 10.8 g/dL (14.0-18.0); MEAN CORPUSCULAR HEMOGLOBIN 30.9 pg (28.0-32.0); MEAN CORPUSCULAR VOLUME 91.8 fL (80.0-94.0); MEAN PLATELET VOLUME 9.9 fl (7.4-10.4); PLATELET 70 x1000/uL (130-400); RED BLOOD CELL COUNT 3.48 mill/uL (4.7-6.1); RED CELL DISTRIBUTION WIDTH 15.1 % (11.6-14.6)
[2020-12-12 08:20] LABS: PLATELET ESTIMATE DECREASED
[2020-12-12 09:18] LABS: BG CARBOXYHEMOGLOBIN 0.4 % (0.5-1.5); BG DEOXYHEMOGLOBIN 12.5 % (0.0-5.0); BG FRACTION INSPIRED OXYGEN 50; BG OXYGEN SATURATION 87.4 % (92.0-98.5); BG OXYHEMOGLOBIN 87.1 % (94.0-97.0); BG PCO2 28.6 mmHg (35.0-45.0); BG PH 7.441 (7.350-7.450); BG PO2 53.9 mmHg (75.0-100.0); BG SAMPLE SITE RIGHT RADIAL; BG TOTAL HEMOGLOBIN 11.5 g/dL (12.0-18.0); BG VENT MODE VENT - AC
[2020-12-12] MEDS: DEXAMETHASONE 10 MG/ML VIAL IV SCH (09:58)
[2020-12-12] MEDS: DEXT 5%/0.45% NACL 1000ML 1,000 ML IV SCH (09:58)
[2020-12-12] MEDS: FAMOTIDINE 20MG/2ML VIAL IV SCH (09:58)
[2020-12-12 12:16] LABS: CHLORIDE 117 mEq/L (98-107)
[2020-12-12 12:20] LABS: PHOSPHORUS 3.7 mg/dL (2.5-4.9)
[2020-12-12] MEDS: DEXTROSE 50% WATER 50ML SYRINGE IV PRN (13:01)
[2020-12-12 21:50] LABS: T4 FREE 1.03 ng/dL (0.76-1.46)
[2020-12-12 22:15] LABS: VITAMIN B12 SERUM >2000 pg/mL pg/mL (211-911)
[2020-12-12] MEDS: LORAZEPAM 2MG/ML CPJ IV PRN (22:26)
[2020-12-12] MEDS: MORPHINE SULFATE 2 MG/ML CPJ (NOT FOR IM USE) IV PRN (23:48)
[2020-12-13] VITALS (54 sets, daily range): BP systolic 65–138; BP diastolic 27–88
[2020-12-13] MEDS: NOREPINEPHRINE 8 MG in DEXT 5% WATER 242 ML IV PRN ×2 (00:23→21:12)
[2020-12-13] MEDS: IPRATROPIUM/ALBUTEROL 0.5-3(2.5)MG/3ML NEB HHN SCH ×6 (00:42→20:31)
[2020-12-13 01:12] LABS: CLARITY URINE TURBID (CLEAR); COLOR URINE RED (YELLOW); KETONES URINE 1+ (NEGATIVE); PH URINE 5.5 (4.5-8.0); PROTEIN URINE 1+ (NEGATIVE); SPECIFIC GRAVITY URINE 1.025 (1.005-1.030)
[2020-12-13 01:13] LABS: LEUKOCYTE ESTERASE URINE 2+ (NEGATIVE); NITRITE URINE POSITIVE (NEGATIVE); OCCULT BLOOD URINE 2+ (NEGATIVE)
[2020-12-13] MEDS: INSULIN LISPRO 100 UNITS/ML SUBCUT SCH ×4 (06:14→20:26)
[2020-12-13] MEDS: BLOOD SUGAR DIAGNOSTIC STRIP TEST SCH ×4 (06:14→18:38)
[2020-12-13 08:58] LABS: BG CARBOXYHEMOGLOBIN 0.1 % (0.5-1.5); BG DEOXYHEMOGLOBIN 4.5 % (0.0-5.0); BG HCO3 ACT 18.1 mmol/L (22.0-26.0); BG METHEMOGLOBIN 0.1 % (0.0-1.5); BG OXYGEN SATURATION 95.5 % (92.0-98.5); BG OXYHEMOGLOBIN 95.3 % (94.0-97.0); BG PCO2 27.1 mmHg (35.0-45.0); BG PH 7.442 (7.350-7.450); BG PO2 80.2 mmHg (75.0-100.0); BG SAMPLE SITE RIGHT RADIAL; BG VENT MODE VENT - AC
[2020-12-13] MEDS: MULTIVITAMINS,THER W-MINERALS TABLET PO SCH (10:39)
[2020-12-13] MEDS: FAMOTIDINE 20MG/2ML VIAL IV SCH (10:39)
[2020-12-13] MEDS: FOLIC ACID 1MG TABLET PO SCH (10:39)
[2020-12-13] MEDS: THIAMINE HCL 100MG TABLET PO SCH (10:40)
[2020-12-13 10:45] LABS: MEAN CORPUSCULAR VOLUME 93.3 fL (80.0-94.0); MEAN PLATELET VOLUME 9.1 fl (7.4-10.4); PLATELET 134 x1000/uL (130-400); RED BLOOD CELL COUNT 3.33 mill/uL (4.7-6.1); RED CELL DISTRIBUTION WIDTH 15.2 % (11.6-14.6)
[2020-12-13] MEDS ORDERED: LACTULOSE 20G/30ML UDC PO SCH (11:00)
[2020-12-13 11:05] LABS: CHLORIDE 117 mEq/L (98-107)
[2020-12-13 12:42] LABS: PLATELET ESTIMATE NORMAL
[2020-12-13] MEDS: DEXT 5%/0.45% NACL 1000ML 1,000 ML IV SCH (14:18)
[2020-12-13] MEDS: MORPHINE SULFATE 2 MG/ML CPJ (NOT FOR IM USE) IV PRN (21:36)
[2020-12-14] VITALS (96 sets, daily range): BP systolic 75–138; BP diastolic 52–95
[2020-12-14] MEDS: LORAZEPAM 2MG/ML CPJ IV PRN ×2 (01:15→22:05)
[2020-12-14] MEDS: IPRATROPIUM/ALBUTEROL 0.5-3(2.5)MG/3ML NEB HHN SCH ×5 (02:33→21:01)
[2020-12-14 05:28] LABS: CHLORIDE 116 mEq/L (98-107)
[2020-12-14] MEDS: BLOOD SUGAR DIAGNOSTIC STRIP TEST SCH ×4 (05:39→20:39)
[2020-12-14 06:03] LABS: HEMATOCRIT. 32.8 % (42.0-52.0); HEMOGLOBIN. 10.5 g/dL (14.0-18.0); MEAN CORPUSCULAR VOLUME 93.2 fL (80.0-94.0); MEAN PLATELET VOLUME 8.7 fl (7.4-10.4); PLATELET 148 x1000/uL (130-400); RED BLOOD CELL COUNT 3.52 mill/uL (4.7-6.1); RED CELL DISTRIBUTION WIDTH 15.6 % (11.6-14.6)
[2020-12-14] MEDS: INSULIN LISPRO 100 UNITS/ML SUBCUT SCH ×4 (06:27→21:01)
[2020-12-14] MEDS: FOLIC ACID 1MG TABLET PO SCH (08:00)
[2020-12-14] MEDS: FAMOTIDINE 20MG/2ML VIAL IV SCH (08:00)
[2020-12-14] MEDS: MULTIVITAMINS,THER W-MINERALS TABLET PO SCH (08:00)
[2020-12-14] MEDS: THIAMINE HCL 100MG TABLET PO SCH (08:00)
[2020-12-14 08:23] LABS: PLATELET ESTIMATE NORMAL
[2020-12-14 08:45] LABS: BG BASE EXCESS -3.9 mmol/L (-2.0-2.0); BG CARBOXYHEMOGLOBIN 0.3 % (0.5-1.5); BG DEOXYHEMOGLOBIN 4.8 % (0.0-5.0); BG FRACTION INSPIRED OXYGEN 90; BG HCO3 ACT 19.2 mmol/L (22.0-26.0); BG METHEMOGLOBIN 0.3 % (0.0-1.5); BG OXYGEN SATURATION 95.2 % (92.0-98.5); BG OXYHEMOGLOBIN 94.6 % (94.0-97.0); BG PCO2 29.3 mmHg (35.0-45.0); BG PH 7.435 (7.350-7.450); BG PO2 77.2 mmHg (75.0-100.0); BG SAMPLE SITE RIGHT RADIAL; BG TOTAL HEMOGLOBIN 11.8 g/dL (12.0-18.0); BG TOTAL RESPIRATORY RATE 33 b/min; BG VENT MODE VENT - AC
[2020-12-14] MEDS: NOREPINEPHRINE 8 MG in DEXT 5% WATER 242 ML IV PRN (09:36)
[2020-12-14] MEDS ORDERED: SODIUM POLYSTYRENE SULFONATE 15 G/60 ML BOT PO NR (11:30)
[2020-12-14 16:52] LABS: *AMPHETAMINES SCREEN URINE NEGATIVE (NEGATIVE); *BARBITURATES SCREEN URINE NEGATIVE (NEGATIVE); *BENZODIAZEPINES SCREEN URINE PRESUMTIVE POSITIVE (NEGATIVE); *COCAINE SCREEN URINE NEGATIVE (NEGATIVE)
[2020-12-14 16:53] LABS: METHADONE URINE SCREEN NEGATIVE (NEGATIVE); OPIATES URINE SCREEN PRESUMTIVE POSITIVE (NEGATIVE)
[2020-12-14 16:55] LABS: CANNABINOID URINE SCREEN NEGATIVE (NEGATIVE); PHENCYCLIDINE URINE SCREEN NEGATIVE (NEGATIVE)
[2020-12-14] MEDS: MORPHINE SULFATE 2 MG/ML CPJ (NOT FOR IM USE) IV PRN (21:40)
[2020-12-15] VITALS (95 sets, daily range): BP systolic 62–144; BP diastolic 35–106
[2020-12-15] MEDS: ACETAMINOPHEN 325MG TABLET PO PRN ×2 (00:08→16:56)
[2020-12-15] MEDS: IPRATROPIUM/ALBUTEROL 0.5-3(2.5)MG/3ML NEB HHN SCH ×5 (02:16→20:32)
[2020-12-15] MEDS: NOREPINEPHRINE 8 MG in DEXT 5% WATER 242 ML IV PRN (03:10)
[2020-12-15 04:56] LABS: PHOSPHORUS 3.6 mg/dL (2.5-4.9)
[2020-12-15 05:05] LABS: HEMATOCRIT. 31.4 % (42.0-52.0); HEMOGLOBIN. 10.2 g/dL (14.0-18.0); MEAN CORPUSCULAR HEMOGLOBIN 30.3 pg (28.0-32.0); MEAN CORPUSCULAR VOLUME 93.8 fL (80.0-94.0); MEAN PLATELET VOLUME 9.3 fl (7.4-10.4); PLATELET 123 x1000/uL (130-400); RED BLOOD CELL COUNT 3.35 mill/uL (4.7-6.1); RED CELL DISTRIBUTION WIDTH 16.3 % (11.6-14.6)
[2020-12-15] MEDS: BLOOD SUGAR DIAGNOSTIC STRIP TEST SCH ×4 (05:46→21:54)
[2020-12-15] MEDS: INSULIN LISPRO 100 UNITS/ML SUBCUT SCH ×4 (06:24→21:56)
[2020-12-15 08:15] LABS: BG BASE EXCESS -3.2 mmol/L (-2.0-2.0); BG CARBOXYHEMOGLOBIN 0.3 % (0.5-1.5); BG DEOXYHEMOGLOBIN 2.3 % (0.0-5.0); BG HCO3 ACT 21.1 mmol/L (22.0-26.0); BG METHEMOGLOBIN 0.3 % (0.0-1.5); BG OXYGEN SATURATION 97.7 % (92.0-98.5); BG OXYHEMOGLOBIN 97.1 % (94.0-97.0); BG PCO2 34.8 mmHg (35.0-45.0); BG PO2 108.1 mmHg (75.0-100.0); BG SAMPLE SITE RIGHT RADIAL; BG TOTAL HEMOGLOBIN 10.8 g/dL (12.0-18.0); BG VENT MODE VENT - AC
[2020-12-15] MEDS: FAMOTIDINE 20MG/2ML VIAL IV SCH (10:48)
[2020-12-15] MEDS: FOLIC ACID 1MG TABLET PO SCH (10:48)
[2020-12-15 10:49] LABS: PLATELET ESTIMATE SLIGHTLY DECREASED
[2020-12-15] MEDS: THIAMINE HCL 100MG TABLET PO SCH (10:49)
[2020-12-15] MEDS ORDERED: FLUMAZENIL 0.1 MG/ML 5ML VIAL IV SCH (13:45)
[2020-12-15] MEDS: MORPHINE SULFATE 2 MG/ML CPJ (NOT FOR IM USE) IV PRN (16:25)
[2020-12-15] MEDS: PHENYLEPHRINE 100 MG in DEXT 5% WATER 240 ML IV PRN (16:28)
[2020-12-15] MEDS ORDERED: METOPROLOL TARTRATE 25MG TABLET PO NR (17:00)
[2020-12-15] MEDS: PROPOFOL 10MG/ML 100ML 100 ML IV PRN (20:17)
[2020-12-15] MEDS: METOPROLOL TARTRATE 25MG TABLET PO SCH (21:00)
[2020-12-16] VITALS (98 sets, daily range): BP systolic 58–177; BP diastolic 17–95
[2020-12-16] MEDS: ACETAMINOPHEN 325MG TABLET PO PRN (01:09)
[2020-12-16] MEDS: IPRATROPIUM/ALBUTEROL 0.5-3(2.5)MG/3ML NEB HHN SCH ×6 (02:50→20:12)
[2020-12-16] MEDS: PROPOFOL 10MG/ML 100ML 100 ML IV PRN ×3 (03:00→21:06)
[2020-12-16] MEDS: PHENYLEPHRINE 100 MG in DEXT 5% WATER 240 ML IV PRN ×4 (03:05→18:44)
[2020-12-16] MEDS: MORPHINE SULFATE 2 MG/ML CPJ (NOT FOR IM USE) IV PRN (03:06)
[2020-12-16] MEDS: NOREPINEPHRINE 8 MG in DEXT 5% WATER 242 ML IV PRN ×6 (05:00→18:43)
[2020-12-16] MEDS: BLOOD SUGAR DIAGNOSTIC STRIP TEST SCH ×4 (06:11→20:39)
[2020-12-16] MEDS: INSULIN LISPRO 100 UNITS/ML SUBCUT SCH ×4 (06:12→20:40)
[2020-12-16 06:48] LABS: RED BLOOD CELL COUNT 3.16 mill/uL (4.7-6.1)
[2020-12-16 06:49] LABS: HEMOGLOBIN. 9.9 g/dL (14.0-18.0); MEAN CORPUSCULAR HEMOGLOBIN 31.3 pg (28.0-32.0); MEAN CORPUSCULAR VOLUME 95.2 fL (80.0-94.0); MEAN PLATELET VOLUME 9.8 fl (7.4-10.4); PLATELET 141 x1000/uL (130-400); RED CELL DISTRIBUTION WIDTH 16.5 % (11.6-14.6)
[2020-12-16 06:59] LABS: PHOSPHORUS 5.7 mg/dL (2.5-4.9)
[2020-12-16] MEDS ORDERED: SODIUM BICARBONATE 8.4% 1 MEQ/ML 50ML SYR IV NR ×3 (08:30→18:00)
[2020-12-16] MEDS ORDERED: DEXTROSE 50% WATER 50ML SYRINGE IV NR (08:30)
[2020-12-16] MEDS ORDERED: INSULIN REGULAR (HUMULIN R) 300UNITS/3ML VIAL IV NR (08:30)
[2020-12-16] MEDS: FOLIC ACID 1MG TABLET PO SCH (08:44)
[2020-12-16] MEDS: THIAMINE HCL 100MG TABLET PO SCH (08:44)
[2020-12-16] MEDS: METOPROLOL TARTRATE 25MG TABLET PO SCH ×2 (08:45→20:40)
[2020-12-16] MEDS: FAMOTIDINE 20MG/2ML VIAL IV SCH (08:45)
[2020-12-16] MEDS: VASOPRESSIN 20 UNIT in SODIUM CHLORIDE 0.9% 99 ML IV PRN ×2 (10:49→18:45)
[2020-12-16 11:18] LABS: BG BASE EXCESS -11.8 mmol/L (-2.0-2.0); BG CARBOXYHEMOGLOBIN 0.4 % (0.5-1.5); BG DEOXYHEMOGLOBIN 16.8 % (0.0-5.0); BG FRACTION INSPIRED OXYGEN 100; BG HCO3 ACT 15.3 mmol/L (22.0-26.0); BG METHEMOGLOBIN 0.3 % (0.0-1.5); BG OXYGEN SATURATION 83.1 % (92.0-98.5); BG OXYHEMOGLOBIN 82.5 % (94.0-97.0); BG PCO2 39.2 mmHg (35.0-45.0); BG PH 7.209 (7.350-7.450); BG PO2 56.3 mmHg (75.0-100.0); BG SAMPLE SITE LEFT RADIAL; BG TOTAL HEMOGLOBIN 10.5 g/dL (12.0-18.0); BG TOTAL RESPIRATORY RATE 34 b/min; BG VENT MODE VENT - AC
[2020-12-16 14:10] LABS: PLATELET ESTIMATE NORMAL
[2020-12-16 15:15] LABS: BG BASE EXCESS -8.2 mmol/L (-2.0-2.0); BG CARBOXYHEMOGLOBIN 0.3 % (0.5-1.5); BG DEOXYHEMOGLOBIN 23.5 % (0.0-5.0); BG FRACTION INSPIRED OXYGEN 100; BG METHEMOGLOBIN 0.2 % (0.0-1.5); BG OXYGEN SATURATION 76.4 % (92.0-98.5); BG PH 7.272 (7.350-7.450); BG PO2 46.3 mmHg (75.0-100.0); BG SAMPLE SITE LEFT RADIAL; BG TOTAL HEMOGLOBIN 10.1 g/dL (12.0-18.0); BG TOTAL RESPIRATORY RATE 25 b/min; BG VENT MODE VENT - AC
[2020-12-16] MEDS: SODIUM BICARBONATE 100 MEQ in DEXTROSE 5% WATER 1,000 ML IV SCH (20:09)
[2020-12-16 21:28] LABS: HEMATOCRIT 29.7 % (42.0-52.0); HEMOGLOBIN 9.6 g/dL (14.0-18.0); MEAN CORPUSCULAR VOLUME 95.8 fL (80.0-94.0); PLATELET 85 x1000/uL (130-400); RED CELL DISTRIBUTION WIDTH 16.4 % (11.6-14.6)
[2020-12-16] MEDS: NOREPINEPHRINE 32 MG in DEXT 5% WATER 218 ML IV PRN (23:21)
[2020-12-17] VITALS (96 sets, daily range): BP systolic 67–173; BP diastolic 33–106
[2020-12-17] MEDS: IPRATROPIUM/ALBUTEROL 0.5-3(2.5)MG/3ML NEB HHN SCH ×2 (04:13→20:17)
[2020-12-17 04:55] LABS: HEMATOCRIT. 29.1 % (42.0-52.0); HEMOGLOBIN. 9.3 g/dL (14.0-18.0); MEAN CORPUSCULAR HEMOGLOBIN 30.8 pg (28.0-32.0); MEAN CORPUSCULAR VOLUME 96.6 fL (80.0-94.0); MEAN PLATELET VOLUME 11.1 fl (7.4-10.4); PLATELET 76 x1000/uL (130-400); RED BLOOD CELL COUNT 3.01 mill/uL (4.7-6.1); RED CELL DISTRIBUTION WIDTH 16.7 % (11.6-14.6)
[2020-12-17] MEDS: VASOPRESSIN 20 UNIT in SODIUM CHLORIDE 0.9% 99 ML IV PRN ×2 (06:06→11:09)
[2020-12-17] MEDS: INSULIN LISPRO 100 UNITS/ML SUBCUT SCH ×4 (06:09→20:28)
[2020-12-17] MEDS: BLOOD SUGAR DIAGNOSTIC STRIP TEST SCH ×4 (06:09→20:26)
[2020-12-17] MEDS: PROPOFOL 10MG/ML 100ML 100 ML IV PRN ×2 (06:42→13:28)
[2020-12-17] MEDS: FOLIC ACID 1MG TABLET PO SCH (08:56)
[2020-12-17] MEDS: THIAMINE HCL 100MG TABLET PO SCH (08:56)
[2020-12-17] MEDS: FAMOTIDINE 20MG/2ML VIAL IV SCH (08:56)
[2020-12-17] MEDS: METOPROLOL TARTRATE 25MG TABLET PO SCH ×2 (08:57→20:26)
[2020-12-17] MEDS: PHENYLEPHRINE 100 MG in DEXT 5% WATER 240 ML IV PRN ×3 (08:58→22:30)
[2020-12-17] MEDS: SODIUM BICARBONATE 100 MEQ in DEXTROSE 5% WATER 1,000 ML IV SCH (11:07)
[2020-12-17] MEDS: NOREPINEPHRINE 32 MG in DEXT 5% WATER 218 ML IV PRN (11:08)
[2020-12-17 14:12] LABS: PLATELET ESTIMATE DECREASED
[2020-12-18] VITALS (90 sets, daily range): BP systolic 86–251; BP diastolic 34–80
[2020-12-18] MEDS: VASOPRESSIN 20 UNIT in SODIUM CHLORIDE 0.9% 99 ML IV PRN ×3 (00:32→17:17)
[2020-12-18] MEDS: SODIUM BICARBONATE 100 MEQ in DEXTROSE 5% WATER 1,000 ML IV SCH ×2 (01:38→17:13)
[2020-12-18] MEDS: PROPOFOL 10MG/ML 100ML 100 ML IV PRN ×2 (03:00→09:36)
[2020-12-18] MEDS: IPRATROPIUM/ALBUTEROL 0.5-3(2.5)MG/3ML NEB HHN SCH ×4 (03:02→20:22)
[2020-12-18] MEDS: NOREPINEPHRINE 32 MG in DEXT 5% WATER 218 ML IV PRN ×3 (04:48→22:45)
[2020-12-18] MEDS: PHENYLEPHRINE 100 MG in DEXT 5% WATER 240 ML IV PRN ×3 (05:36→17:18)
[2020-12-18 05:45] LABS: HEMATOCRIT. 27.5 % (42.0-52.0); HEMOGLOBIN. 8.8 g/dL (14.0-18.0); MEAN CORPUSCULAR HEMOGLOBIN 31.4 pg (28.0-32.0); MEAN CORPUSCULAR VOLUME 97.9 fL (80.0-94.0); MEAN PLATELET VOLUME 12.4 fl (7.4-10.4); PLATELET 65 x1000/uL (130-400); RED BLOOD CELL COUNT 2.81 mill/uL (4.7-6.1); RED CELL DISTRIBUTION WIDTH 17.1 % (11.6-14.6)
[2020-12-18] MEDS: INSULIN LISPRO 100 UNITS/ML SUBCUT SCH ×4 (06:05→21:00)
[2020-12-18] MEDS: BLOOD SUGAR DIAGNOSTIC STRIP TEST SCH ×4 (06:05→21:16)
[2020-12-18] MEDS: FAMOTIDINE 20MG/2ML VIAL IV SCH (09:32)
[2020-12-18] MEDS: METOPROLOL TARTRATE 25MG TABLET PO SCH ×2 (09:34→21:00)
[2020-12-18] MEDS: FOLIC ACID 1MG TABLET PO SCH (09:34)
[2020-12-18] MEDS: THIAMINE HCL 100MG TABLET PO SCH (09:34)
[2020-12-18] MEDS ORDERED: SODIUM POLYSTYRENE SULFONATE 15 G/60 ML BOT PO SCH (10:00)
[2020-12-18 10:32] LABS: NUCLEATED RED BLOOD CELLS 50 /100 WBC; PLATELET ESTIMATE DECREASED
[2020-12-18] MEDS ORDERED: FENTANYL CITRATE/PF 2,500 MCG in SODIUM CHLORIDE 0.9% 200 ML IV PRN (12:30)
[2020-12-18 12:53] LABS: BG BASE EXCESS -13.4 mmol/L (-2.0-2.0); BG CARBOXYHEMOGLOBIN 0.3 % (0.5-1.5); BG DEOXYHEMOGLOBIN 28.9 % (0.0-5.0); BG FRACTION INSPIRED OXYGEN 100; BG HCO3 ACT 14.7 mmol/L (22.0-26.0); BG METHEMOGLOBIN 0.3 % (0.0-1.5); BG OXYGEN SATURATION 70.9 % (92.0-98.5); BG OXYHEMOGLOBIN 70.5 % (94.0-97.0); BG PCO2 43.4 mmHg (35.0-45.0); BG PH 7.149 (7.350-7.450); BG PO2 44.7 mmHg (75.0-100.0); BG SAMPLE SITE RIGHT RADIAL; BG TOTAL HEMOGLOBIN 9.7 g/dL (12.0-18.0); BG VENT MODE VENT - AC
[2020-12-18 13:06] LABS: 7-AMINOCLONAZEPAM CONFIRM Negative (.); ALPRAZOLAM CONFIRM Negative (.); BARBITURATE SCREEN Negative ug/mL (Cutoff:0.1); BENZODIAZEPINE SCREEN ++POSITIVE++ ng/mL (Cutoff:20); CHLORDIAZEPOXIDE CONFIRM Negative (.); CLONAZEPAM CONFIRM Negative (.); DESMETHYLCHLORDIAZEPOXIDE Negative (.); DIAZEPAM CONFIRM Negative (.); FLURAZEPAM CONFIRM Negative (.); MIDAZOLAM CONFIRM Negative (.); OPIATES SCREEN Negative ng/mL (Cutoff:5); OXAZEPAM CONFIRM Negative (.); PHENCYCLIDINE SCREEN Negative ng/mL (Cutoff:8); TEMAZEPAM CONFIRM Negative (.); TRIAZOLAM CONFIRM Negative (.)
[2020-12-18] MEDS ORDERED: PANTOPRAZOLE SODIUM 40 MG/VIAL IV SCH (17:00)
[2020-12-18 19:09] LABS: HEMATOCRIT 27.2 % (42.0-52.0); HEMOGLOBIN 8.4 g/dL (14.0-18.0)
[2020-12-18] MEDS ORDERED: PROPRANOLOL HCL 10MG TABLET NG SCH (21:00)
[2020-12-18] MEDS: DOPAMINE 400 MG PREMIX 250 ML IV PRN (22:44)
[2020-12-19] MEDS: IPRATROPIUM/ALBUTEROL 0.5-3(2.5)MG/3ML NEB HHN SCH (02:10)
[2020-12-19] MEDS: PHENYLEPHRINE 100 MG in DEXT 5% WATER 240 ML IV PRN (02:37)
[2020-12-19] MEDS: VASOPRESSIN 20 UNIT in SODIUM CHLORIDE 0.9% 99 ML IV PRN (02:38)
[2020-12-19] MEDS: DOPAMINE 400 MG PREMIX 250 ML IV PRN (03:43)
[2020-12-19 04:15] VITALS: BP 65/28
[2020-12-19 05:51] LABS: HEMATOCRIT. 25.4 % (42.0-52.0); HEMOGLOBIN. 7.4 g/dL (14.0-18.0); MEAN CORPUSCULAR VOLUME 109.8 fL (80.0-94.0); MEAN PLATELET VOLUME 10.4 fl (7.4-10.4); RED BLOOD CELL COUNT 2.31 mill/uL (4.7-6.1); RED CELL DISTRIBUTION WIDTH 18.6 % (11.6-14.6)
[2020-12-19 11:19] LABS: NUCLEATED RED BLOOD CELLS 143 /100 WBC
[2020-12-19 11:20] LABS: PLATELET ESTIMATE MARKEDLY DECREASED
[2020-12-19 11:21] LABS: PLATELET 14 x1000/uL (130-400)
== END 2020-12-19 04:56 | disposition expired | DRG 720 ==
LOC: ER 10:49 → MICUSO 15:21 → EDBEDREQSVC 15:28 → EDBEDREQ 15:29 → CVICU 12-10 09:50 → MICUSO 12-10 10:13
PROVIDERS: ADMIT Internal Medicine; ATTEND Internal Medicine
PROC: 5A1955Z Respiratory Ventilation, Greater than 96 Consecutive Hours (ICD-10-PCS; principal; 2020-12-01)
PROC: 06HY33Z Insertion of Infusion Device into Lower Vein, Percutaneous Approach (ICD-10-PCS; 2020-12-01)
PROC: B54BZZA Ultrasonography of Right Lower Extremity Veins, Guidance (ICD-10-PCS; 2020-12-01)
PROC: 0BH18EZ Insertion of Endotracheal Airway into Trachea, Via Natural or Artificial Opening Endoscopic (ICD-10-PCS; 2020-12-01)
PROC: 5A12012 Performance of Cardiac Output, Single, Manual (ICD-10-PCS; 2020-12-19)
DX: A41.89 Other specified sepsis (principal); U07.1 COVID-19; E87.1 Hypo-osmolality and hyponatremia; E87.2 Acidosis; E87.8 Other disorders of electrolyte and fluid balance, not elsewhere classified; I10 Essential (primary) hypertension; J12.82 Pneumonia due to coronavirus disease 2019; J96.01 Acute respiratory failure with hypoxia; R65.21 Severe sepsis with septic shock; T38.0X5A Adverse effect of glucocorticoids and synthetic analogues, initial encounter; E43 Unspecified severe protein-calorie malnutrition; I46.9 Cardiac arrest, cause unspecified; N17.0 Acute kidney failure with tubular necrosis; D69.6 Thrombocytopenia, unspecified; E11.65 Type 2 diabetes mellitus with hyperglycemia; K76.6 Portal hypertension; K70.31 Alcoholic cirrhosis of liver with ascites; G92 Toxic encephalopathy; E87.0 Hyperosmolality and hypernatremia; E87.5 Hyperkalemia; D53.9 Nutritional anemia, unspecified; R16.1 Splenomegaly, not elsewhere classified; J96.02 Acute respiratory failure with hypercapnia; F10.10 Alcohol abuse, uncomplicated; Y90.9 Presence of alcohol in blood, level not specified; K92.2 Gastrointestinal hemorrhage, unspecified; Z79.899 Other long term (current) drug therapy; Y92.89 Other specified places as the place of occurrence of the external cause; Z79.84 Long term (current) use of oral hypoglycemic drugs; Z68.28 Body mass index [BMI] 28.0-28.9, adult; Z86.73 Personal history of transient ischemic attack (TIA), and cerebral infarction without residual deficits
CPT/HCPCS: 36415; 36600; 49083; 70551; 71045; 76705; 76770; 80048; 80053; 80076; 80305; 80307; 80320; 81003; 82140; 82375; 82550; 82607; 82728; 82746; 82805; 82962; 83036; 83615; 83735; 83880; 84100; 84145; 84439; 84443; 84478; 84481; 84484; 85014; 85018; 85025; 85027; 85379; 86140; 86705; 86709; 86803; 87070; 87340; 87426; 93005; 93970; 94003; 94640; 96365; 99291; A6261; C9113; J0330; J0692; J1100; J1265; J1650; J1815; J2060; J2185; J2250; J2270; J2370; J2543; J2704; J3010; J3370; J3490; J7030; J7040; J7050; J7060; J7070; G0480